=== PATIENT | female | born 1955 | race Caucasian/White ===

== ENCOUNTER 2017-09-13 12:39 | Emergency (ER) | payer BC ==
[2017-09-13 12:52] VITALS: BP 199/95; PULSE 83; RESP 21; TEMP 98.5; O2SAT 100
--- NOTE | 2017-09-13 13:09 | PD ---
HPI Chief Complaint: Respiratory Symptoms Time Seen by Provider: 12:57 Travel History International Travel<30 days: No Contact w/Intl Traveler<30days: No Traveled to known affect area: No History of Present Illness HPI Patient comes emergency department complaining of shortness of breath has been getting progressively worse over the past month. Patient states that symptoms began after having a cold little over a month ago. Patient saw her primary care doctor received 2 separate shots of steroids and was referred to garage supervisor. Patient also reports having her asthma medications changed with no improvement of symptoms. Patient states symptoms are getting progressively worse as the days go by. Patient reports having a heaviness in her chest ongoing for a year now. Denies any recent travel, fevers, or leg swelling. Patient reports when she saw her primary care doctor she did get a nebulizer treatment at her primary care's office that seemed to help for a short period. Patient reports anytime she coughs up phlegm it improves her symptoms. PFSH Past Medical History Asthma: Yes Hypertension: Yes Respiratory: Yes Social History Tobacco Use: No Substance Use: No Allergies-Medications (Allergen,Severity, Reaction): Coded Allergies: No Known Allergies (Verified Allergy, Unknown, 09/13/17) Reported Meds & Prescriptions Reported Meds & Active Scripts Active Albuterol Neb (Albuterol Sulfate) 2.5 Mg/3 Ml Neb 2.5 Mg NEB Q4HR NEB PRN Nebulizer/Adult Mask (N/A) 1 Kit Kit Kit .XX DIRECTED Medrol Dosepak (Methylprednisolone) 4 Mg Dspk 4 Mg PO DIRECTED Per Pharmacist direction Reported [beclate] 200 Rosuvastatin (Rosuvastatin Calcium) 5 Mg Tab 5 Mg PO DAILY Montelukast (Montelukast Sodium) 10 Mg Tab 10 Mg PO HS Escitalopram (Escitalopram Oxalate) 10 Mg Tab 10 Mg PO DAILY Enalapril (Enalapril Maleate) 10 Mg Tab 10 Mg PO DAILY Breo Ellipta Inh (Fluticasone/Vilanterol) 200-25 Mcg/Act Inh 1 Puff INH DAILY Use daily at the same time. Proair Hfa 8.5 GM Inh (Albuterol Sulfate) 90 Mcg/Act Aer 2 Puff INH Q4-6H PRN 108 mcg/actuation Levothyroxine (Levothyroxine Sodium) 125 Mcg Tab 125 Mcg PO DAILY Review of Systems Except as stated in HPI: all other systems reviewed are Neg Physical Exam Narrative GENERAL: Well-developed, well nourished, in mild distress, and non-ill appearing. SKIN: Focused skin assessment warm and dry. HEAD: Atraumatic. Normocephalic. EYES: Pupils equal and round. EOMI. No scleral icterus. No injection or drainage. ENT: No nasal bleeding or discharge. Mucous membranes pink and moist. NECK: Trachea midline. Supple. No nuclear rigidity. CARDIOVASCULAR: Regular rate and rhythm. No murmur appreciated. RESPIRATORY: No accessory muscle use. No respiratory distress. Tight breath sounds throughout. Breath sounds equal bilaterally. MUSCULOSKELETAL: No obvious deformities. No clubbing. No cyanosis. No edema. Full range of motion. NEUROLOGICAL: Awake and alert. No obvious cranial nerve deficits. Motor grossly within normal limits. Normal speech. PSYCHIATRIC: Appropriate mood and affect; insight and judgment normal. Data Data Last Documented VS Vital Signs Date Time Temp Pulse Resp B/P (MAP) Pulse Ox O2 Delivery O2 Flow Rate FiO2 09/13/17 15:06 09/13/17 15:06 85 20 97 Room Air 09/13/17 12:52 98.5 Orders Orders Complete Blood Count With Diff (09/13/17 13:03) Basic Metabolic Panel (Bmp) (09/13/17 13:03) Act Partial Throm Time (Ptt) (09/13/17 13:03) Prothrombin Time / Inr (Pt) (09/13/17 13:03) Magnesium (Mg) (09/13/17 13:03) Iv Access Insert/Monitor (09/13/17 13:03) Electrocardiogram (09/13/17 13:03) Ecg Monitoring (09/13/17 13:03) Oximetry (09/13/17 13:03) Oxygen Administration (09/13/17 13:03) Chest, Single Ap (09/13/17 13:03) Sodium Chloride 0.9% Flush (Ns Flush) (09/13/17 13:15) Methylprednisolone So Succ Inj (Solumedr (09/13/17 13:15) Albuterol-Ipratropium Neb (Duoneb Neb) (09/13/17 13:15) Ckmb (Isoenzyme) Profile (09/13/17 13:21) Troponin I (09/13/17 13:21) Potassium Chloride (Kcl) (09/13/17 14:00) Ed Discharge Order (09/13/17 14:50) Resp Mdi/Instruction (09/13/17 14:50) Labs Laboratory Tests Test 09/13/17 13:20 White Blood Count 7.1 TH/MM3 Red Blood Count 4.56 MIL/MM3 Hemoglobin 14.6 GM/DL Hematocrit 41.4 % Mean Corpuscular Volume 90.7 FL Mean Corpuscular Hemoglobin 32.0 PG Mean Corpuscular Hemoglobin Concent 35.3 % Red Cell Distribution Width 12.9 % Platelet Count 245 TH/MM3 Mean Platelet Volume 8.1 FL Neutrophils (%) (Auto) 68.3 % Lymphocytes (%) (Auto) 23.2 % Monocytes (%) (Auto) 8.0 % Eosinophils (%) (Auto) 0.0 % Basophils (%) (Auto) 0.5 % Neutrophils # (Auto) 4.8 TH/MM3 Lymphocytes # (Auto) 1.6 TH/MM3 Monocytes # (Auto) 0.6 TH/MM3 Eosinophils # (Auto) 0.0 TH/MM3 Basophils # (Auto) 0.0 TH/MM3 CBC Comment DIFF FINAL Differential Comment Prothrombin Time 10.0 SEC Prothromb Time International Ratio 1.0 RATIO Activated Partial Thromboplast Time 23.3 SEC Blood Urea Nitrogen 12 MG/DL Creatinine 0.98 MG/DL Random Glucose 103 MG/DL Calcium Level 9.1 MG/DL Magnesium Level 2.2 MG/DL Sodium Level 140 MEQ/L Potassium Level 3.2 MEQ/L Chloride Level 104 MEQ/L Carbon Dioxide Level 26.6 MEQ/L Anion Gap 9 MEQ/L Estimat Glomerular Filtration Rate 57 ML/MIN Total Creatine Kinase 77 U/L Troponin I LESS THAN 0.02 NG/ML MDM Medical Decision Making Medical Screen Exam Complete: Yes Emergency Medical Condition: Yes Interpretation(s) EKG reviewed by Dr. Tim shows sinus rhythm with a ventricular rate of 77. No STEMI. Last Impressions Chest X-Ray 09/13/17 1303 Signed Impressions: CONCLUSION: No acute cardiopulmonary disease. Differential Diagnosis Asthma exacerbation, pneumonia, COPD, atypical chest pain, metabolic disturbance Narrative Course 1400 patient reassessed reports improvement of symptoms status post nebulizer and steroids. Lung sounds have improved. The patient looks great and improved well with Nebulizer and steroid medication. The patient is moving air well and in no distress nor significant dyspnea, and oxygen saturation is within normal limits. There is no clinical evidence to suggest pneumonia at this time. Diagnosis, plan of care and management were discussed with the patient who agreed with plan and feels better and ready to go home. The patient was instructed to return if worsen, worsening difficulty breathing or wheezing, persistent fever, chest pain or as needed. Patient in no obvious distress upon re-evaluation. All pertinent laboratory/ Radiology result(s) discussed with patient/family. Discussed patient with Dr. Tim prior discharge, who is in agreement with plan of care and disposition. Patient was asked if they wanted to speak to my attending, which the patient did not wish to do at this time. Any questions/concerns in reference to patient diagnosis/condition discussed and clarified prior to patient's discharge. Reinforced sheer importance of close follow up with patient 's primary physician or primary care clinic. Instructed patient to return to ED immediately, if symptoms return/worsen. Patient showed understanding of above instructions. Further instructions and recommendations were detailed in discharge paperwork. Patient ambulated without difficulty out of ED at discharge. Diagnosis Primary Impression: Asthma exacerbation Qualified Codes: J45.901 - Unspecified asthma with (acute) exacerbation Additional Impression: Hypokalemia Patient Instructions: Asthma (ED), General Instructions, Hypokalemia (ED) Additional Instructions: Follow-up with your primary care physician in 3-5 days for evaluation. Follow- up with garage supervisor as scheduled. Take all medication as prescribed. Return to the emergency department if symptoms get worse. Med/Other Pt SpecificInfo: Prescription(s) given Scripts Albuterol Neb (Albuterol Neb) 2.5 Mg/3 Ml Neb 2.5 MG NEB Q4HR NEB Y for SHORTNESS OF BREATH, #60 NEBULE 0 Refills Prov: Alvaro Tim MD 09/13/17 Nebulizer/Adult Mask (Nebulizer/Adult Mask) 1 Kit Kit KIT .XX DIRECTED for Breathing Treatment, #1 0 Refills Prov: Alvaro Tim MD 09/13/17 Methylprednisolone Dosepak (Medrol Dosepak) 4 Mg Dspk 4 MG PO DIRECTED, #1 DSPK 0 Refills Per Pharmacist direction Prov: Alvaro Tim MD 09/13/17 Disposition: DISCHARGE HOME Condition: Stable Leoncio Hurtado September 13, 2017 13:09
[2017-09-13] MEDS ORDERED: methylPREDNISolone SOD SUCC 125 MG/2 ML VIAL IV PUSH ONE (13:15)
[2017-09-13] MEDS: RESP: ALBUTEROL 2.5 MG/IPRATROPIUM 0.5 MG NEB (SCH) INH (13:15)
[2017-09-13] MEDS ORDERED: SODIUM CHLORIDE 0.9% FLUSH 10 ML FLUSH IVF PRN (13:15)
[2017-09-13 13:21] VITALS: O2SAT 100
--- NOTE | 2017-09-13 13:24 | RADRPT ---
EXAM DATE: 09/13/2017 1:18 PM EDT AGE/SEX: 62 years / Female INDICATIONS: Shortness of breath. CLINICAL DATA: This is the patient's initial encounter. Patient reports that signs and symptoms have been present for 1 week and indicates a pain score of 0/10. MEDICAL/SURGICAL HISTORY: Asthma. None. COMPARISON: POI, XR CHEST PA AND LAT, 04/13/2017. . FINDINGS: A single AP view of the chest demonstrates the lungs to be symmetrically aerated without evidence of mass, infiltrate or effusion. The cardiomediastinal contours are unremarkable. Osseous structures a re intact. CONCLUSION: No acute cardiopulmonary disease. Electronically signed by: Ankit Macias MD 09/13/2017 1:22 PM EDT
[2017-09-13] MEDS ORDERED: LEVO125T4 PO (13:30)
[2017-09-13] MEDS ORDERED: MONT10TA4 PO (13:30)
[2017-09-13] MEDS ORDERED: ALBUAER3 INH (13:30)
[2017-09-13] MEDS ORDERED: [UNRECOGNIZED DRUG - OTHER] (13:30)
[2017-09-13] MEDS ORDERED: ROSU1TAB4 PO (13:30)
[2017-09-13] MEDS ORDERED: ENAL10TA PO (13:30)
[2017-09-13] MEDS ORDERED: ESCI10TA PO (13:30)
[2017-09-13] MEDS ORDERED: FLUT1INH7 INH (13:30)
[2017-09-13 13:33] LABS: AUTOMATED NEUTROPHIL # 4.8 TH/MM3 (1.8-7.7); BASOPHIL % 0.5 % (0.0-2.0); HEMATOCRIT 41.4 % (35.0-46.0); HEMOGLOBIN 14.6 GM/DL (11.6-15.3); LYMPH % 23.2 % (9.0-44.0); LYMPHOCYTE # 1.6 TH/MM3 (1.0-4.8); MEAN CELL VOLUME 90.7 FL (80.0-100.0); MEAN CORPUSCULAR HGB CONC 35.3 % (32.0-36.0); MEAN PLATELET VOLUME 8.1 FL (7.0-11.0); MONOCYTE # 0.6 TH/MM3 (0-0.9); NEUT % 68.3 % (16.0-70.0); PLATELET COUNT 245 TH/MM3 (150-450); RED BLOOD COUNT 4.56 MIL/MM3 (4.00-5.30); RED CELL DISTRIBUTION WIDTH 12.9 % (11.6-17.2); WHITE BLOOD COUNT 7.1 TH/MM3 (4.0-11.0)
[2017-09-13 13:50] LABS: BICARBONATE 26.6 MEQ/L (21.0-32.0); CALCIUM 9.1 MG/DL (8.5-10.1); CREATININE 0.98 MG/DL (0.50-1.00); MAGNESIUM 2.2 MG/DL (1.5-2.5)
[2017-09-13 13:55] LABS: TROPONIN I LESS THAN 0.02 NG/ML (0.02-0.05)
[2017-09-13] MEDS ORDERED: POTASSIUM CHLORIDE 20 MEQ CONTROLLED RELEASE TAB PO ONE (14:00)
[2017-09-13] MEDS ORDERED: ALBU0.08 NEB (14:53)
[2017-09-13] MEDS ORDERED: NEBULIZER/ADULT1 KIT (14:53)
[2017-09-13] MEDS ORDERED: MEDR4PAK PO (14:53)
[2017-09-13 15:06] VITALS: BP 139/70; PULSE 85; RESP 20; O2SAT 97
--- NOTE | 2017-09-14 14:43 | EKG ---
Date Performed: 09/13/2017 Time Performed: 13:19:11 PTAGE: 62 years EKG: Sinus rhythm NORMAL ECG NO PREVIOUS TRACING DOCTOR: Lowell Miller Interpretating Date/Time 09/14/2017 14:42:11
== END 2017-09-13 15:08 | disposition home or self-care (01) ==
LOC: NEPE 12:39
DX: J45.901 Unspecified asthma with (acute) exacerbation (principal); E87.6 Hypokalemia; I10 Essential (primary) hypertension
CPT/HCPCS: 71045; 80048; 82550; 83735; 84484; 85025; 85610; 85730; 93005; 94640; 94664; 96374; 99285; J2930

== ENCOUNTER → 2017-10-05 | Outpatient (CLI) | payer BC ==
[~2017-10-05] MED LIST: ALBU0.08 NEB; ALBUAER3 INH; ENAL10TA PO; ESCI10TA PO; FLUT1INH7 INH; LEVO125T4 PO; MEDR4PAK PO; MONT10TA4 PO; NEBULIZER/ADULT1 KIT; ROSU1TAB4 PO; [UNRECOGNIZED DRUG - OTHER]
== END ==
LOC: HRSP 12:11
PROVIDERS: ATTEND Internal Medicine
DX: J45.909 Unspecified asthma, uncomplicated (principal)
CPT/HCPCS: 94060; 94618; 94726; 94729; 95012